=== PATIENT | female | born 1960 | race Caucasian/White ===

== ENCOUNTER 2018-04-16 15:19 | Outpatient (CLI) | payer OTHER | END 2018-04-16 15:20 | disposition home or self-care (01) | LOC: BICMAMMO 15:19 | PROVIDERS: ATTEND Family Medicine | DX: Z12.31 Encounter for screening mammogram for malignant neoplasm of breast (principal); Z80.3 Family history of malignant neoplasm of breast | CPT/HCPCS: 77063; 77067 ==

== ENCOUNTER 2019-07-27 15:31 | Outpatient (CLI) | payer OTHER ==
--- NOTE | 2019-07-27 16:14 | MMO ---
Bilateral MAMMO Bilat Screen [facility]. CLINICAL HISTORY: Patient is 59 years old and is seen for screening. The patient has the following family history of breast cancer: mother. The patient has no personal history of cancer. VIEWS: The views performed were: bilateral craniocaudal with tomosynthesis; bilateral mediolateral oblique with tomosynthesis; and left mediolateral oblique. FILMS COMPARED: The present examination has been compared to prior imaging studies performed at [facility] on 04/16/2018, and at [facility] on 06/13/2013, 02/01/2015 and 03/19/2016. This study has been interpreted with the assistance of computer-aided detection. MAMMOGRAM FINDINGS: There are scattered fibroglandular densities. There are no suspicious masses, suspicious calcifications, or new areas of architectural distortion. IMPRESSION: THERE IS NO MAMMOGRAPHIC EVIDENCE OF MALIGNANCY. A ROUTINE FOLLOW-UP MAMMOGRAM IN 1 YEAR IS RECOMMENDED. THE RESULTS OF THIS EXAM WERE SENT TO THE PATIENT. ACR BI-RADS Category 1 - Negative MAMMOGRAPHY NOTE: 1. A negative mammogram report should not delay a biopsy if a dominant of clinically suspicious mass is present. 2. Approximately 10% to 15% of breast cancers are not detected by mammography. 3. Adenosis and dense breasts may obscure an underlying neoplasm. Reported by: TERRELL CORTES MD Electonically Signed: [id number]
== END 2019-07-27 15:32 | disposition home or self-care (01) ==
LOC: BICMAMMO 15:31
PROVIDERS: ATTEND Family Medicine
DX: Z12.31 Encounter for screening mammogram for malignant neoplasm of breast (principal); Z80.3 Family history of malignant neoplasm of breast
CPT/HCPCS: 77063; 77067

== ENCOUNTER 2019-10-12 13:49 | Outpatient (CLI) | payer OTHER ==
--- NOTE | 2019-10-12 14:20 | RAD ---
LUMBAR SPINE 3 VIEWS: Date: 10/12/2019 HISTORY: Lumbar radicular pain. COMPARISON: Lumbar spine radiographs from 2014. FINDINGS: Three lateral images of the lumbar spine were obtained. Moderate vascular calcifications of the aorta. Narrowing at the interspinous space L3-L5 with cortica l sclerosis and subcortical cyst formation. In the neutral position, there is mild to moderate degenerative disc space height loss at L4-5 and L5 -S1. No significant translation with flexion or extension. IMPRESSION: No significant translation with flexion or extension. Moderate degenerative change. POS: TPC
== END 2019-10-12 13:50 | disposition home or self-care (01) ==
LOC: RAD 13:49
PROVIDERS: ATTEND Nurse Practitioner Family
DX: M47.26 Other spondylosis with radiculopathy, lumbar region (principal)
CPT/HCPCS: 72100

== ENCOUNTER 2020-04-06 12:55 | Outpatient (CLI) | payer OTHER ==
--- NOTE | 2020-04-06 13:59 | RAD ---
LUMBAR SPINE 3 VIEWS INCLUDING NEUTRAL AND FLEXION AND EXTENSION LATERAL VIEWS WHILE STANDING: Date: 04/06/2020 HISTORY: Lumbar radicular pain, right-sided sciatic pain. COMPARISON: 10/12/2019. FINDINGS: Mild multilevel disc osteophytosis and moderate facet arthrosis changes, particularly of the lower zurdo mbar spine. No abnormal translation between flexion and extension. Disc osteophytosis of the visualiz ed thoracic spine. IMPRESSION: Lumbar spondylosis. No abnormal translation between flexion and extension. POS: RRE
--- NOTE | 2020-04-06 14:02 | MRI ---
MRI LUMBAR SPINE WITHOUT CONTRAST: Date: 04/06/2020 INDICATION: Lumbar radicular pain. History of prior lumbar surgery. Comparison made to MRI lumbar spine dated 04/18/2014. FINDINGS: Lumbar vertebra maintain normal height and alignment. Vertebra body signal appears normal. The disc s paces are preserved. L1-2: No significant disc bulge. Mild facet hypertrophy. No central canal or foraminal stenosis. L2-3: Minimal disc bulge. Mild facet arthrosis and hypertrophy. No central canal or foraminal stenos is. L3-4: Mild disc bulge centrally. There is an annular fissure with small protrusion to the left which extends into the left foraminal zone and mildly displaces the exiting left L3 nerve root. Facet hype rtrophy is present. No significant central canal stenosis. L4-5: Mild disc bulge centrally abuts the thecal sac. Asymmetric bulge to the left extends into the left foramina and extends laterally to the left with disc osteophyte complex. This appears to contact and may displace the exiting left L4 nerve root laterally. L5-S1: Broad based disc bulge abuts the thecal sac. Facet hypertrophy. Evidence of right posterior l aminectomy. Right foraminal stenosis secondary to disc osteophyte complex and facet hypertrophy. IMPRESSION: See findings above at L3-4, L4-5, and L5-S1 levels. POS: AGW
== END 2020-04-06 12:56 | disposition home or self-care (01) ==
LOC: TBSIIMAG 12:55
PROVIDERS: ATTEND Nurse Practitioner Family
DX: M47.26 Other spondylosis with radiculopathy, lumbar region (principal); M51.16 Intervertebral disc disorders with radiculopathy, lumbar region; M48.07 Spinal stenosis, lumbosacral region; M51.9 Unspecified thoracic, thoracolumbar and lumbosacral intervertebral disc disorder; M25.78 Osteophyte, vertebrae; Z98.890 Other specified postprocedural states
CPT/HCPCS: 72100; 72148